=== PATIENT | male | born 1980 | race Two or more races ===

== ENCOUNTER 2017-11-13 17:11 | Emergency (ER) | payer BC ==
[2017-11-13] MEDS ORDERED: DIPHENHYDRAMINE HCL 50 MG CAPSULE PO ONE (17:34)
[2017-11-13] MEDS ORDERED: FAMOTIDINE INJ/PF 20 MG/2 ML SDV IV ONE (17:34)
[2017-11-13] MEDS ORDERED: METHYLPREDNISOLONE INJ 125 MG/2 ML SDV IV ONE (17:34)
[2017-11-13] MEDS ORDERED: EPINEPHRINE INJ/PF 1 MG/1 ML AMPULE IM ONE (18:10)
--- NOTE | 2017-11-13 18:12 | ER Document Report ---
ED Allergic Reaction - General Chief Complaint: Allergic Reaction Stated Complaint: POSSIBLE ALLERGIC REACTION Time Seen by Provider: 11/13/17 18:00 Mode of Arrival: Ambulatory Information source: Patient Notes: Patient reports getting stung by multiple loss around 4 PM. Patient complains of skin pruritus with rash and swelling. Patient states that he has had severe reactions after insect stings in the past. Patient states that he did have some facial swelling although it seems to be decreased at this time. Patient denies any difficulty breathing or swallowing. TRAVEL OUTSIDE OF THE [place] IN LAST 30 DAYS: No - HPI Onset: This afternoon Onset/Duration: Sudden Quality of pain: Achy Pain Level: 2 Skin rash / itching: "Redness", "Hives" Swelling: Face Associated symptoms: None Similar symptoms previously: No Recently seen / treated by doctor: No - Related Data Allergies/Adverse Reactions: No Known Allergies Allergy (Unverified 11/13/17 17:15) Past Medical History - General Information source: Patient - Social History Smoking Status: Never Smoker Frequency of alcohol use: None Drug Abuse: None Occupation: Construction Lives with: Family Family History: Reviewed & Not Pertinent Patient has suicidal ideation: No Patient has homicidal ideation: No - Medical History Medical History: Negative Renal/ Medical History: Denies: Hx Peritoneal Dialysis Past Surgical History: Reports: Other - Vasectomy Review of Systems - Review of Systems Constitutional: No symptoms reported EENT: No symptoms reported. denies: Throat pain, Difficulty swallowing Cardiovascular: No symptoms reported. denies: Chest pain Respiratory: No symptoms reported. denies: Short of breath Gastrointestinal: No symptoms reported. denies: Vomiting Genitourinary: No symptoms reported Male Genitourinary: No symptoms reported Musculoskeletal: No symptoms reported Skin: Rash Hematologic/Lymphatic: No symptoms reported Neurological/Psychological: No symptoms reported Physical Exam - Vital signs Vitals: Temp Pulse Resp BP Pulse Ox 98.6 F 106 H 16 112/57 L 97 11/13/17 17:21 11/13/17 17:21 11/13/17 17:21 11/13/17 17:21 11/13/17 17:21 - General General appearance: Appears well, Alert In distress: None - HEENT Head: Normocephalic, Atraumatic Eyes: Normal Conjunctiva: Normal Nasal: Normal Mouth/Lips: Normal. No: Angioedema Mucous membranes: Normal Pharynx: Normal. No: Tonsillar hypertrophy, Uvular edema Neck: Normal, Supple. No: Lymphadenopathy - Respiratory Respiratory status: No respiratory distress Chest status: Nontender Breath sounds: Normal. No: Rales, Rhonchi, Stridor, Wheezing Chest palpation: Normal - Cardiovascular Rhythm: Regular Heart sounds: S1 appreciated, S2 appreciated Murmur: No - Back Back: Normal, Nontender - Extremities General upper extremity: Normal inspection, Normal ROM General lower extremity: Normal inspection, Normal ROM - Neurological Neuro grossly intact: Yes Cognition: Normal Fanny Coma Scale Eye Opening: Spontaneous Fanny Coma Scale Verbal: Oriented Ong Coma Scale Motor: Obeys Commands Fanny Coma Scale Total: 15 - Psychological Associated symptoms: Normal affect, Normal mood - Skin Skin Temperature: Warm Skin Moisture: Dry Skin Color: Erythema Skin irregularity: Rash Character of irregularity: Urticarial Irregularity with: Swelling Course - Re-evaluation Re-evalutation: 11/13/17 19:30 Erythema and rash almost completely resolved, no facial swelling, no potential airway compromise. 11/13/17 20:42 Patient without any worsening of rash or swelling. Patient nontoxic in appearance. Good return precautions given. Patient will be given a prescription for an EpiPen. - Vital Signs Vital signs: Temp Pulse Resp BP Pulse Ox 98.6 F 81 16 113/68 95 11/13/17 17:21 11/13/17 21:30 11/13/17 17:21 11/13/17 21:30 11/13/17 21:30 Discharge - Discharge Clinical Impression: Insect sting Qualifiers: Encounter type: initial encounter Injury intent: undetermined intent Qualified Code(s): T63.484A - Toxic effect of venom of other arthropod, undetermined, initial encounter Allergic reaction Qualifiers: Encounter type: initial encounter Qualified Code(s): T78.40XA - Allergy, unspecified, initial encounter Condition: Stable Disposition: HOME, SELF-CARE Instructions: Acute Allergic Reaction ([facility]), Use of Diphenhydramine, Epinephrine, Insect Sting ([facility]), Steroid Medication Additional Instructions: Return immediately for any new or worsening symptoms Followup with your primary care provider, call tomorrow to make a followup appointment Take Benadryl [id number] every 6 hours to help with your symptoms Prescriptions: Epinephrine [Epipen 2-Akhil] 0.3 mg IM ASDIR PRN #1 unit PRN Reason: Famotidine [Pepcid 20 mg Tablet] 20 mg PO BID #12 tablet Prednisone [Deltasone 10 mg Tablet] 10 mg PO ASDIR PRN #21 tablet PRN Reason: Referrals: [facility] [Provider Group] - Follow up as needed
[2017-11-13 21:30] VITALS: BP 113/68
== END 2017-11-13 21:31 | disposition home or self-care (01) ==
LOC: ER 17:11
DX: T63.481A Toxic effect of venom of other arthropod, accidental (unintentional), initial encounter (principal); L50.9 Urticaria, unspecified
CPT/HCPCS: 99283; 96372; 96374; 96375; J0171; J2930; S0028